=== PATIENT | female | born 1990 | race Caucasian/White ===

== ENCOUNTER 2025-05-26 12:03 | Emergency (ER) | payer BC ==
--- NOTE | 2025-05-26 12:20 | ERPHSYRPT ---
- History of Present Illness Time Seen by Provider: 05/26/25 12:11 Source: patient Exam Limitations: no limitations Physician History: 35-year-old female history of Jabari's thyroiditis presents the emergency room with palpitations patient reports she has been off her symptoms for past 6 months she was sent over here by her family doctor because she has been having persistent tachycardia she has had an episode back in February where she did not see anybody she reports she feels extremely sweaty and she feels like her heart is beating denies any shortness of breath denies any chest pain denies any nausea vomiting diarrhea denies any flank pain denies any rash patient is now in ED for further eval Timing/Duration: today Activities at Onset: none Chest Pain Radiation: no radiation Severity of Pain-Max: none Modifying Factors: Improves With: nothing Nitro Today/Relief: no nitro taken today Aspirin Treatment Today: no aspirin today Allergies/Adverse Reactions: Penicillins Allergy (Intermediate, Verified 05/26/25 12:21) Hives Sulfa (Sulfonamide Antibiotics) Adverse Reaction (Intermediate, Verified 05/26/25 12:21) Vomiting - Review of Systems Constitutional: No Fever, No Chills Eyes: No Symptoms Ears, Nose, & Throat: No Symptoms Respiratory: No Cough, No Dyspnea Cardiac: Palpitations, No Chest Pain, No Edema, No Syncope Abdominal/Gastrointestinal: No Abdominal Pain, No Nausea, No Vomiting, No Diarrhea Genitourinary Symptoms: No Dysuria Musculoskeletal: No Back Pain, No Neck Pain Skin: No Rash Neurological: No Dizziness, No Focal Weakness, No Sensory Changes Psychological: No Symptoms Endocrine: No Symptoms All Other Systems: Reviewed and Negative - Female History Hx Now: No - Nursing Vital Signs Nursing Vital Signs: Initial Vital Signs O2 Sat by Pulse Oximetry 99 05/26/25 12:10 Pain Scale Pain Intensity 0 - Physical Exam General Appearance: no apparent distress, alert Eye Exam: PERRL/EOMI, eyes nml inspection Ears, Nose, Throat Exam: normal ENT inspection, moist mucous membranes Neck Exam: normal inspection, non-tender, supple Respiratory Exam: normal breath sounds, lungs clear, No respiratory distress Cardiovascular Exam: normal heart sounds, tachycardia, No edema Gastrointestinal/Abdomen Exam: soft, No tenderness, No mass Back Exam: normal inspection, No CVA tenderness, No vertebral tenderness Extremity Exam: normal inspection, normal range of motion Neurologic Exam: alert, oriented x 3, cooperative, normal mood/affect, nml cerebellar function, sensation nml, No motor deficits Skin Exam: normal color, warm, dry Lymphatic Exam: No adenopathy - Course Nursing assessment & vital signs reviewed: Yes EKG Interpreted by Me: RATE, Sinus Tach (142), Non-specific ST Changes, Other (no STEMI) Ordered Tests: Active Orders 24 hr Category Date Time Status 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 STAT Care 05/26/25 12:11 Active EKG-ER Only STAT Care 05/26/25 12:10 Completed IV Insertion STAT Care 05/26/25 12:10 Active Pulse Oximetry (ED) STAT Care 05/26/25 12:10 Active CHEST 1 VIEW (PORTABLE) Stat Exams 05/26/25 12:10 Completed CHEST WITH CONTRAST [CT] Stat Exams 05/26/25 12:56 Completed CBC W DIFF Stat Lab 05/26/25 12:20 Completed CK-Creatinine Phosphokinase Stat Lab 05/26/25 12:20 Completed CMP Stat Lab 05/26/25 12:20 Completed D-DIMER QUANTITATIVE Stat Lab 05/26/25 12:20 Completed HCG, Quantitative (Inhouse) Stat Lab 05/26/25 12:20 Completed MAGNESIUM Stat Lab 05/26/25 12:20 Completed NT PRO BNPII Stat Lab 05/26/25 12:20 Completed TROPONIN Stat Lab 05/26/25 12:20 Completed TSH [TSH, 3RD Generation] Stat Lab 05/26/25 12:20 Completed UA W/RFX UR CULTURE Stat Lab 05/26/25 13:28 Completed Holter Monitor Scan-RT ONCE RT 05/26/25 15:10 Active Medication Summary Discontinued Medications Generic Name Dose Route Start Last Admin Trade Name Freq PRN Reason Stop Dose Admin Sodium Chloride 1,000 mls @ 999 mls/hr 05/26/25 12:10 05/26/25 13:27 Sodium Chloride 0.9% 1000 Ml IV 05/26/25 13:10 Infused .Q1H1M STA Infusion Sodium Chloride Confirm 05/26/25 12:18 Sodium Chloride 0.9% 1000 Ml Administered 05/26/25 12:19 Dose 1,000 mls @ ud .ROUTE .STK-MED ONE Propranolol HCl 40 mg 05/26/25 12:20 05/26/25 12:34 Propranolol Hcl 20 Mg Tablet PO 05/26/25 12:21 40 mg STAT ONE Administration Lab/Rad Data: Laboratory Result Diagrams 05/26/25 12:20 05/26/25 12:20 Laboratory Results 05/26/25 05/26/25 05/26/25 Range/Units 13:28 12:20 12:20 WBC (3.98-10.04) x10^3/uL RBC (3.93-5.22) x10^6/uL Hgb (11.2-15.7) g/dL Hct (34.1-44.9) % MCV (79.4-94.8) fL MCH (25.6-32.2) pg MCHC (32.2-35.5) g/dL RDW (11.7-14.4) % Plt Count (182-369) x10^3/uL MPV (9.4-12.3) fL Gran % (34.0-71.1) % Immature Gran % (Auto) (0.001-0.429) % Nucleat RBC Rel Count (0.00-0.2) % Eos # (Auto) (0.04-0.36) x10^3/uL Immature Gran # (Auto) (0.001-0.031) x10^3u/L Absolute Lymphs (auto) (1.18-3.74) x10^3/uL Absolute Monos (auto) (0.24-0.86) x10^3/uL Absolute Nucleated RBC (0.00-0.012) x10^3u/L Lymphocytes % (19.3-51.7) % Monocytes % (4.7-12.5) % Eosinophils % (0.7-5.8) % Basophils % (0.1-1.2) % Absolute Granulocytes (1.56-6.13) x10^3/uL Basophils # (0.01-0.08) x10^3/uL D-Dimer (0.0-0.50) mg/L Sodium (135-145) mmol/L Potassium (3.5-5.1) mmol/L Chloride (98-107) mmol/L Carbon Dioxide (22-30) mmol/L Anion Gap (5-15) MEQ/L BUN (7-17) mg/dL Creatinine (0.52-1.04) mg/dL Estimated GFR ML/MIN Glucose (74-106) mg/dL Calcium (8.4-10.2) mg/dL Magnesium (1.6-2.3) mg/dL Total Bilirubin (0.2-1.3) mg/dL AST (14-36) U/L ALT (0-35) U/L Alkaline Phosphatase (38-126) U/L Creatine Kinase (30-135) U/L Troponin I (0.000-0.033) ng/mL NT-Pro-B Natriuret Pep (<300) pg/mL Serum Total Protein (6.3-8.2) g/dL Albumin (3.5-5.0) g/dL Free T4 1.16 (0.78-2.19) ng/dL TSH 3rd Generation (0.470-4.680) mIU/L Beta HCG, Quant < 2.39 mIU/ml Urine Color Yellow (Yellow) Urine Appearance Clear (Clear) Urine pH 6.5 (4.6-8.0) Ur Specific [place] <=1.005 (1.005-1.030) Urine Protein Negative (Negative) Urine Glucose (UA) Negative (Negative) mg/dL Urine Ketones Negative (Negative) Urine Blood Negative (Negative) Urine Nitrite Negative (Negative) Urine Bilirubin Negative (Negative) Urine Urobilinogen 0.2 (0.2) mg/dL Ur Leukocyte Esterase Negative (Negative) U Hyaline Cast (Auto) NONE SEEN (0-2) /LPF Urine Microscopic RBC 3-5 (0-5) /HPF Urine Microscopic WBC 3-5 (0-5) /HPF Ur Epithelial Cells Rare (None Seen) /HPF Urine Bacteria Few A (None Seen) /HPF Urine Culture Reflexed NO (NO) Slides for Path Review 05/26/25 05/26/25 05/26/25 Range/Units 12:20 12:20 12:20 WBC (3.98-10.04) x10^3/uL RBC (3.93-5.22) x10^6/uL Hgb (11.2-15.7) g/dL Hct (34.1-44.9) % MCV (79.4-94.8) fL MCH (25.6-32.2) pg MCHC (32.2-35.5) g/dL RDW (11.7-14.4) % Plt Count (182-369) x10^3/uL MPV (9.4-12.3) fL Gran % (34.0-71.1) % Immature Gran % (Auto) (0.001-0.429) % Nucleat RBC Rel Count (0.00-0.2) % Eos # (Auto) (0.04-0.36) x10^3/uL Immature Gran # (Auto) (0.001-0.031) x10^3u/L Absolute Lymphs (auto) (1.18-3.74) x10^3/uL Absolute Monos (auto) (0.24-0.86) x10^3/uL Absolute Nucleated RBC (0.00-0.012) x10^3u/L Lymphocytes % (19.3-51.7) % Monocytes % (4.7-12.5) % Eosinophils % (0.7-5.8) % Basophils % (0.1-1.2) % Absolute Granulocytes (1.56-6.13) x10^3/uL Basophils # (0.01-0.08) x10^3/uL D-Dimer 1.53 H* (0.0-0.50) mg/L Sodium 136 (135-145) mmol/L Potassium 3.6 (3.5-5.1) mmol/L Chloride 103 (98-107) mmol/L Carbon Dioxide 20 L (22-30) mmol/L Anion Gap 15.9 H (5-15) MEQ/L BUN 15 (7-17) mg/dL Creatinine 0.86 (0.52-1.04) mg/dL Estimated GFR 89.2 ML/MIN Glucose 94 (74-106) mg/dL Calcium 9.3 (8.4-10.2) mg/dL Magnesium 1.7 (1.6-2.3) mg/dL Total Bilirubin 1.20 (0.2-1.3) mg/dL AST 27 (14-36) U/L ALT 17 (0-35) U/L Alkaline Phosphatase 85 (38-126) U/L Creatine Kinase 31 (30-135) U/L Troponin I < 0.012 (0.000-0.033) ng/mL NT-Pro-B Natriuret Pep 36.6 (<300) pg/mL Serum Total Protein 8.1 (6.3-8.2) g/dL Albumin 4.8 (3.5-5.0) g/dL Free T4 (0.78-2.19) ng/dL TSH 3rd Generation 3.408 (0.470-4.680) mIU/L Beta HCG, Quant mIU/ml Urine Color (Yellow) Urine Appearance (Clear) Urine pH (4.6-8.0) Ur Specific [place] (1.005-1.030) Urine Protein (Negative) Urine Glucose (UA) (Negative) mg/dL Urine Ketones (Negative) Urine Blood (Negative) Urine Nitrite (Negative) Urine Bilirubin (Negative) Urine Urobilinogen (0.2) mg/dL Ur Leukocyte Esterase (Negative) U Hyaline Cast (Auto) (0-2) /LPF Urine Microscopic RBC (0-5) /HPF Urine Microscopic WBC (0-5) /HPF Ur Epithelial Cells (None Seen) /HPF Urine Bacteria (None Seen) /HPF Urine Culture Reflexed (NO) Slides for Path Review 05/26/25 Range/Units 12:20 WBC 13.3 H (3.98-10.04) x10^3/uL RBC 4.85 (3.93-5.22) x10^6/uL Hgb 14.6 (11.2-15.7) g/dL Hct 41.7 (34.1-44.9) % MCV 86.0 (79.4-94.8) fL MCH 30.1 (25.6-32.2) pg MCHC 35.0 (32.2-35.5) g/dL RDW 11.7 (11.7-14.4) % Plt Count 274 (182-369) x10^3/uL MPV 9.0 L (9.4-12.3) fL Gran % 94.8 H (34.0-71.1) % Immature Gran % (Auto) 0.5 H (0.001-0.429) % Nucleat RBC Rel Count 0.0 (0.00-0.2) % Eos # (Auto) 0.01 L (0.04-0.36) x10^3/uL Immature Gran # (Auto) 0.06 H (0.001-0.031) x10^3u/L Absolute Lymphs (auto) 0.44 L (1.18-3.74) x10^3/uL Absolute Monos (auto) 0.15 L (0.24-0.86) x10^3/uL Absolute Nucleated RBC 0.00 (0.00-0.012) x10^3u/L Lymphocytes % 3.3 L (19.3-51.7) % Monocytes % 1.1 L (4.7-12.5) % Eosinophils % 0.1 L (0.7-5.8) % Basophils % 0.2 (0.1-1.2) % Absolute Granulocytes 12.59 H (1.56-6.13) x10^3/uL Basophils # 0.02 (0.01-0.08) x10^3/uL D-Dimer (0.0-0.50) mg/L Sodium (135-145) mmol/L Potassium (3.5-5.1) mmol/L Chloride (98-107) mmol/L Carbon Dioxide (22-30) mmol/L Anion Gap (5-15) MEQ/L BUN (7-17) mg/dL Creatinine (0.52-1.04) mg/dL Estimated GFR ML/MIN Glucose (74-106) mg/dL Calcium (8.4-10.2) mg/dL Magnesium (1.6-2.3) mg/dL Total Bilirubin (0.2-1.3) mg/dL AST (14-36) U/L ALT (0-35) U/L Alkaline Phosphatase (38-126) U/L Creatine Kinase (30-135) U/L Troponin I (0.000-0.033) ng/mL NT-Pro-B Natriuret Pep (<300) pg/mL Serum Total Protein (6.3-8.2) g/dL Albumin (3.5-5.0) g/dL Free T4 (0.78-2.19) ng/dL TSH 3rd Generation (0.470-4.680) mIU/L Beta HCG, Quant mIU/ml Urine Color (Yellow) Urine Appearance (Clear) Urine pH (4.6-8.0) Ur Specific [place] (1.005-1.030) Urine Protein (Negative) Urine Glucose (UA) (Negative) mg/dL Urine Ketones (Negative) Urine Blood (Negative) Urine Nitrite (Negative) Urine Bilirubin (Negative) Urine Urobilinogen (0.2) mg/dL Ur Leukocyte Esterase (Negative) U Hyaline Cast (Auto) (0-2) /LPF Urine Microscopic RBC (0-5) /HPF Urine Microscopic WBC (0-5) /HPF Ur Epithelial Cells (None Seen) /HPF Urine Bacteria (None Seen) /HPF Urine Culture Reflexed (NO) Slides for Path Review YES - Progress Progress Note: 05/26/25 12:42 Comparison: None Portable chest demonstrates normal heart and lungs. Bony thorax intact with mild dextroscoliosis centered at T8. 05/26/25 15:22 Multiple contiguous axial images obtained through the chest using 80 cc Isovue 370 contrast and PE protocol. Comparison: None Good opacification pulmonary arteries to include lobar and segmental branches. No pulmonary embolus. Heart not enlarged. Aorta is normal in course and caliber. No pathologic mediastinal/hilar lymphadenopathy. Lungs demonstrates tiny right midlung / left lower lobe calcified granulomas and minimal bilateral dependent atelectasis. Bony thorax intact. Limited upper abdomen including adrenal glands are unremarkable. Impression: Normal CT chest pulmonary embolus exam with incidental old granulomatous disease. 05/26/25 15:22 Patient has some tachycardia which improved with propranolol patient be discharged with a prescription for propranolol patient also has a Holter monitor for home recommend she follow-up with her family doctor - Departure Departure Disposition: Home Clinical Impression: Tachycardia Condition: Stable Critical Care Time: No Referrals: MICHAEL BOWDEN [Primary Care Provider, [facility]] - Follow up/PCP as directed Instructions: Arrhythmias (DC), Palpitations (DC), Ambulatory heart monitoring Additional Instructions: Be sure to hold your propranolol if your heart rate is less than 110 Prescriptions: Propranolol HCl 20 mg PO Q6H PRN #20 tablet PRN Reason: Dizziness
[2025-05-26 12:21] VITALS: TEMP 97.8
[2025-05-26 12:24] LABS: BASOPHIL % 0.2 % (0.1-1.2); Basophil (Absolute #) 0.02 x10^3/uL (0.01-0.08); Eosinophil (Absolute #) 0.01 x10^3/uL (0.04-0.36); Hematocrit 41.7 % (34.1-44.9); Hemoglobin 14.6 g/dL (11.2-15.7); IMMATURE GRAN # 0.06 x10^3u/L (0.001-0.031); IMMATURE GRAN % 0.5 % (0.001-0.429); Lymphocyte (Absolute #) 0.44 x10^3/uL (1.18-3.74); Mean Corpuscular Hemoglobin 30.1 pg (25.6-32.2); Mean Corpuscular Hgb Concent. 35.0 g/dL (32.2-35.5); Monocyte (Absolute #) 0.15 x10^3/uL (0.24-0.86); NUCLEATED RBC # 0.00 x10^3u/L (0.00-0.012); NUCLEATED RBC % 0.0 % (0.00-0.2); Platelet Count 274 x10^3/uL (182-369); Red Blood Count 4.85 x10^6/uL (3.93-5.22); White Blood Count 13.3 x10^3/uL (3.98-10.04)
[2025-05-26] MEDS: Inderal PO ONE (12:34)
--- NOTE | 2025-05-26 12:35 | XRAY ---
Indication: Palpitations. Comparison: None Portable chest demonstrates normal heart and lungs. Bony thorax intact with mild dextroscoliosis centered at T8.
[2025-05-26 12:44] LABS: SGOT/AST 27 U/L (14-36); SGPT/ALT 17 U/L (0-35)
[2025-05-26 12:54] LABS: CK-Creatinine Phosphokinase 31 U/L (30-135); Calcium 9.3 mg/dL (8.4-10.2); Carbon Dioxide 20 mmol/L (22-30); Creatinine 1 0.86 mg/dL (0.52-1.04); EST GLOMERULAR FILTRATION RATE 89.2 ML/MIN; Glucose 94 mg/dL (74-106); NT PRO BNPII 36.6 pg/mL (<300); Potassium 3.6 mmol/L (3.5-5.1); TROPONIN < 0.012 ng/mL (0.000-0.033); Total Protein 8.1 g/dL (6.3-8.2)
[2025-05-26 13:43] LABS: Glucose, Urine Negative (Negative); Protein,Urine Dip Negative (Negative)
[2025-05-26 13:50] LABS: Slide Review 1 YES
--- NOTE | 2025-05-26 15:17 | XRAY ---
Indication: Elevated D-dimer. Recent palpitation. Multiple contiguous axial images obtained through the chest using 80 cc Isovue 370 contrast and PE protocol. Comparison: None Good opacification pulmonary arteries to include lobar and segmental branches. No pulmonary embolus. Heart not enlarged. Aorta is normal in course and caliber. No pathologic mediastinal/hilar lymphadenopathy. Lungs demonstrates tiny right midlung / left lower lobe calcified granulomas and minimal bilateral dependent atelectasis. Bony thorax intact. Limited upper abdomen including adrenal glands are unremarkable. Impression: Normal CT chest pulmonary embolus exam with incidental old granulomatous disease.
[2025-05-26 16:28] VITALS: BP 114/78; PULSE 114; RESP 13; O2SAT 96
== END 2025-05-26 16:33 | disposition home or self-care (01) ==
LOC: ED 12:03
DX: R00.0 Tachycardia, unspecified (principal); Z79.899 Other long term (current) drug therapy